=== PATIENT | female | born 1985 | race African-American/Black ===

== ENCOUNTER 2016-12-23 00:34 | Emergency (ER) | payer OTHER | END 2016-12-23 01:52 | disposition home or self-care (01) | LOC: ER 00:34 | PROC: 0H98XZZ Drainage of Buttock Skin, External Approach (ICD-10-PCS; principal; 2016-12-23) | DX: L02.31 Cutaneous abscess of buttock (principal) | CPT/HCPCS: 87070; 87205; 99283 ==

== ENCOUNTER 2016-12-26 11:19 | Emergency (ER) | payer OTHER | END 2016-12-26 11:41 | disposition home or self-care (01) | LOC: ER 11:19 | DX: Z48.01 Encounter for change or removal of surgical wound dressing (principal) | CPT/HCPCS: 99283; A9270-GY ==

== ENCOUNTER 2017-01-18 21:02 | Emergency (ER) | payer OTHER | END 2017-01-18 21:31 | disposition home or self-care (01) | LOC: ER 21:02 | DX: S60.561A Insect bite (nonvenomous) of right hand, initial encounter (principal); W57.XXXA Bitten or stung by nonvenomous insect and other nonvenomous arthropods, initial encounter | CPT/HCPCS: 73120; 96372; 99282; J1200 ==